=== PATIENT | female | born 1940 | race Caucasian/White ===

== ENCOUNTER 2022-03-13 11:54 | Emergency (ER) | payer MEDICARE, SELFPAY ==
[2022-03-13 12:10] VITALS: BP 155/61; PULSE 67; RESP 18; TEMP 36.8; O2SAT 98
--- NOTE | 2022-03-13 13:20 | ED.DENTAL ---
HPI - Dental/Oral General Chief complaint: Dental/Oral Stated complaint: Facial Swelling Source: patient Mode of arrival: ambulatory Limitations: no limitations History of Present Illness HPI Narrative: Patient presents for evaluation of redness, swelling, itching to the right side of her face since this morning. She believes she was bit by a gnat yesterday. She woke from sleep this morning with her symptoms. No visual disturbance. No fever, chills, nausea, vomiting, drainage from the eye. She had similar reaction in past when she was bit by a gnat. She is diabetic and compliant with SSI and lantus 16 units daily. Home BS have been in 110's. No additional complaints or concerns. Related Data Home Medications Medication Instructions Recorded Confirmed atorvastatin 40 mg tablet tablet 03/13/22 fentanyl 25 mcg/hr transdermal patch 03/13/22 patch hydroxyzine HCl 25 mg tablet tablet 03/13/22 insulin lispro 100 unit/mL ea subcut 03/13/22 subcutaneous pen lancets 30 gauge (OneTouch Delica 03/13/22 03/13/22 Plus Lancet) metoprolol succinate 50 mg tablet PO 03/13/22 tablet,extended release 24 hr naloxone 4 mg/actuation nasal spray spray intranasal 03/13/22 Allergies Allergy/AdvReac Type Severity Reaction Status Date / Time Penicillins Allergy Mild Unknown Unverified 03/13/22 13:24 Sulfa (Sulfonamide Allergy Mild Unknown Unverified 03/13/22 13:24 Antibiotics) Review of Systems Review of Systems: CONSTITUTIONAL: Denies fever, chills, or sweats. EYES: Denies visual changes, redness, or discharge. ENT: Denies rhinorrhea, congestion, sore throat, or otalgia. CARDIOVASCULAR: Denies chest pain, palpitations, or edema. RESPIRATORY: Denies cough or dyspnea. GASTROINTESTINAL: Denies abdominal pain, nausea, vomiting, or diarrhea. GENITOURINARY: Denies dysuria or hematuria. SKIN: Reports redness and itching to right side of the face MUSCULOSKELETAL: Denies back pain, joint pain, or myalgia. NEUROLOGIC: Denies headache, numbness, dizziness, or weakness. PSYCHIATRIC: Denies anxiety or depression. [facility] Past Medical History Medical History Diabetes Hypertension Surgical History Surgical History No pertinent past surgical history Family History Family History Mother Family history non-contributory Social History Social History Smoking status: Never smoker Alcohol intake: never Substance use: never Gender identity (if verbalized by the patient): Female Spiritual care concerns: No Exam Narrative: GENERAL: Well-appearing, well-nourished, and in no acute distress. HEAD: Normocephalic, atraumatic. EYES: PERRLA and EOMI. ENT: Nares clear, no rhinorrhea or epistaxis. Mucous membranes moist. Oropharynx without tonsillar hypertrophy exudate or other lesions. Bilateral TMs pearly waldron nonbulging NECK: Supple. No adenopathy or masses. No carotid bruits or JVD CHEST: Clear to auscultation. No respiratory distress. No wheezes rales or rhonchi HEART: Regular rate and rhythm. No murmur heard. Normal peripheral pulses. ABDOMEN: Soft, nontender, nondistended, normal active bowel sounds. EXTREMITIES: Normal range of motion. No edema. SKIN: Erythema and mild edema noted to right periorbital region NEURO: No focal deficits. Alert and oriented x3. PSYCH: Normal mood and affect. Course Course Emergency Course: This is an 81-year-old female who presented with complaints of redness and itching to the right periorbital region since this morning. Most likely this is an allergic reaction following a gnat bite. We will cover her with Medrol Dosepak and Benadryl. She needs to monitor her blood sugar closely on medication. We will also cover with antibiotics in the ev
== END 2022-03-13 13:26 | disposition home or self-care (01) ==
PROVIDERS: Emergency Provider Nurse Practitioner; PCP Internal Medicine
DX: T78.40XA Allergy, unspecified, initial encounter (principal); E11.9 Type 2 diabetes mellitus without complications; I10 Essential (primary) hypertension
CPT/HCPCS: 99203; G0463

== ENCOUNTER 2023-06-25 14:59 | Emergency (ER) | payer MEDICARE, SELFPAY ==
[2023-06-25 15:06] VITALS: BP 119/61; PULSE 73; RESP 20; TEMP 36.5; O2SAT 96
--- NOTE | 2023-06-25 15:17 | ED.FEMALEGU ---
HPI - Female Genitourinary General Chief complaint: Urogenital-Female Stated complaint: Poss uti Source: patient and RN notes reviewed History of Present Illness HPI Narrative: 83 yo F presents to urgent care with at side. Pt states she has been having mid lower abdominal cramping x 2 days. Pt believes she has a UTI. Pt states this has been how her UTIs present. denies any dysuria, fevers, chills, N/V/D/C, chest pain, or SOB. Pt currently taking Keflex prophylactically. Related Data Home Medications Medication Instructions Recorded Confirmed atorvastatin 40 mg tablet tablet 03/13/22 fentanyl 25 mcg/hr transdermal patch 03/13/22 patch hydroxyzine HCl 25 mg tablet tablet 03/13/22 insulin lispro 100 unit/mL ea subcut 03/13/22 subcutaneous pen lancets 30 gauge (OneTouch Delica 03/13/22 03/13/22 Plus Lancet) metoprolol succinate 50 mg tablet PO 03/13/22 tablet,extended release 24 hr naloxone 4 mg/actuation nasal spray spray intranasal 03/13/22 amlodipine 5 mg tablet mg 06/25/23 atorvastatin 40 mg tablet mg 06/25/23 cephalexin 500 mg capsule mg 06/25/23 levothyroxine 175 mcg tablet mcg 06/25/23 metoprolol succinate 50 mg mg PO 06/25/23 tablet,extended release 24 hr Allergies Allergy/AdvReac Type Severity Reaction Status Date / Time Penicillins Allergy Mild Unknown Unverified 03/13/22 13:24 Sulfa (Sulfonamide Allergy Mild Unknown Unverified 03/13/22 13:24 Antibiotics) Review of Systems Review of Systems: Pertinent positives and pertinent negatives per HPI. [facility] Past Medical History Medical History (Updated 06/25/23 @ 15:38 by Caroline Clancy, DENNIS) Diabetes Hypertension Surgical History Surgical History No pertinent past surgical history Family History Family History Mother Family history non-contributory Social History Social History Smoking status: Never smoker Alcohol intake: never Substance use: never Gender identity (if verbalized by the patient): Female Spiritual care concerns: No Comments At the time of my signature, I reviewed and agree with the nursing past medical, surgical, social, and family history. There is no relevant family history pertinent to the patient complaint. Exam Narrative: GENERAL: This is a well-nourished, well-developed patient, in no apparent distress. HEAD: normocephalic, atraumatic. EYES: Sclera clear/white. Vision is grossly intact. EARS: External ears normal, auditory canals clear and without drainage. Hearing grossly intact. NOSE: External nose normal with no obvious nasal discharge, nares without redness, no rhinorrhea. THROAT: Mucous membranes moist, posterior pharynx clear. NECK: Neck supple, non-tender without lymphadenopathy, masses or thyromegaly. CARDIOVASCULAR: Regular rate and rhythm without murmurs, gallops, or rubs. RESPIRATORY: Clear to auscultation. Breath sounds equal bilaterally. No wheezes, rales, or rhonchi. GASTROINTESTINAL: Abdomen soft, non-tender, nondistended. Bowel sounds are active. No hepato-splenomegaly, or palpable masses. No guarding. SKIN: warm, intact with no suspicious lesions or rash, good texture and turgor. NEURO: awake, alert, and oriented to person, place and time. There were no obvious focal neurologic abnormalities. EXTREMITIES: No clubbing, cyanosis, or edema. No joint tenderness, effusion, or edema noted. BACK: Nontender without deformity or crepitus. No flank tenderness. Course Course Level of Care: Express Care Visit Vital Signs Vital signs: Vital Signs Temperature 97.7 F 06/25/23 15:06 Pulse Rate 73 06/25/23 15:06 Respiratory Rate 20 06/25/23 15:06 Blood Pressure 119/61 06/25/23 15:06 Pulse Oximetry 96 06/25/23 15:06 Oxygen Delivery Room Air 06/25/23 15:06
== END 2023-06-25 15:49 | disposition home or self-care (01) ==
PROVIDERS: Emergency Provider Nurse Practitioner Family; PCP Internal Medicine
DX: N30.90 Cystitis, unspecified without hematuria (principal); E11.9 Type 2 diabetes mellitus without complications; I10 Essential (primary) hypertension
CPT/HCPCS: 81003; 87086; 87088; 99213; G0463

== ENCOUNTER 2024-07-31 16:30 | Emergency (ER) | payer MEDICARE, SELFPAY ==
[2024-07-31 17:01] VITALS: BP 141/58; PULSE 62; RESP 24; TEMP 36.9; O2SAT 97
[2024-07-31 17:31] LABS: EDUAAPPEAR Clear; EDUABILI Negative (Negative); EDUABLOOD Trace (Negative); EDUACOLOR1 Yellow; EDUAGLUCOSE Negative (Negative); EDUAKETONE Negative (Negative); EDUALEUKO Trace (Negative); EDUANITRATE Negative (Negative); EDUAPROTEIN Negative (Negative); EDUASPGRAVITY 1.015; EDUAUROBILI 0.2
--- NOTE | 2024-07-31 17:52 | ED.GENADULT ---
HPI - General Adult General Chief complaint: Urogenital-Female Stated complaint: Urinary Problem Time Seen by Provider: 07/31/24 17:52 Source: patient, RN notes reviewed and old records reviewed Mode of arrival: ambulatory Limitations: no limitations History of Present Illness HPI narrative: 84-year-old female to Express Care with complaint burning with urination for 2 days. Patient denies fever, abdominal pain, frequency, urgency, nausea, back pain, abdominal pain. Patient resting in exam room in no acute distress; patient's accompanies patient to exam room. Related Data Home Medications Medication Instructions Recorded Confirmed atorvastatin 40 mg tablet tablet 03/13/22 fentanyl 25 mcg/hr transdermal patch 03/13/22 patch hydroxyzine HCl 25 mg tablet tablet 03/13/22 insulin lispro 100 unit/mL ea subcut 03/13/22 subcutaneous pen lancets 30 gauge (OneTouch Delica 03/13/22 03/13/22 Plus Lancet) metoprolol succinate 50 mg tablet PO 03/13/22 tablet,extended release 24 hr naloxone 4 mg/actuation nasal spray spray intranasal 03/13/22 amlodipine 5 mg tablet mg 06/25/23 atorvastatin 40 mg tablet mg 06/25/23 cephalexin 500 mg capsule mg 06/25/23 levothyroxine 175 mcg tablet mcg 06/25/23 metoprolol succinate 50 mg mg PO 06/25/23 tablet,extended release 24 hr Allergies Allergy/AdvReac Type Severity Reaction Status Date / Time Penicillins Allergy Mild Unknown Verified 07/31/24 17:29 Sulfa (Sulfonamide Allergy Mild Unknown Verified 07/31/24 17:29 Antibiotics) Review of Systems Review of Systems: All systems reviewed & are unremarkable except as noted in HPI and below Constitutional: Constitutional: Reports no additional constitutional complaints Eyes: Eyes: Reports no additional eye complaints ENT: Reports system reviewed and no additional complaints, except as documented Cardiovascular: Cardiovascular: Reports no additional cardiovascular complaints, Denies chest pain and Denies dyspnea Respiratory: Respiratory: Reports no additional respiratory complaints, Denies cough and Denies dyspnea Genitourinary: Genitourinary: Reports as per HPI and Reports dysuria ( Burning with urination) Musculoskeletal: Musculoskeletal: Reports no additional musculoskeletal complaints Neurologic: Reports system reviewed and no additional complaints, except as documented Psychiatric: Psychiatric: Reports no additional psychiatric complaints PMFSH Past Medical History Medical History Diabetes Hypertension Surgical History Surgical History No pertinent past surgical history Family History Family History Mother Family history non-contributory Social History Social History Smoking status: Never smoker Alcohol intake: never Substance use: never Gender identity (if verbalized by the patient): Female Spiritual care concerns: No Comments At the time of my signature, I reviewed and agree with the nursing past medical, surgical, social, and family history. There is no relevant family history pertinent to the patient complaint. Exam Const: General: cooperative, comfortable, no acute distress, alert and well nourished Nutritional Appearance: well nourished Orientation/consciousness: patient oriented x3 Limitations: no limitations HENMT: Head: normal to inspection Ears: external ears normal Face/Nose/Sinus: Normal external nose present, Normal nares present, normal facial exam, No erythema and No edema Face and sinus: normal facial exam, no erythema and no edema Mouth: Yes Normal oral and palatal mucosa present Eyes: General: appearance normal, both eyes and all related structures Neck: Neck: normal visual inspection, full ROM and no menin
== END 2024-07-31 18:14 | disposition home or self-care (01) ==
PROVIDERS: Emergency Provider Nurse Practitioner Family; PCP Internal Medicine
DX: N39.0 Urinary tract infection, site not specified (principal); B96.4 Proteus (mirabilis) (morganii) as the cause of diseases classified elsewhere; E11.9 Type 2 diabetes mellitus without complications; I10 Essential (primary) hypertension
CPT/HCPCS: 81003; 87077; 87086; 87186; 99213; G0463